=== PATIENT | female | born 2000 | race Caucasian/White ===

== ENCOUNTER 2018-08-19 21:34 | Inpatient (IN) ==
--- NOTE | 2018-08-19 22:10 | ED ---
HPI General Chief Complaint: Psychiatric Symptoms Stated Complaint: Pysch Eval/VSCO Time Seen by Provider: 08/19/18 21:41 Source: patient and police Mode of arrival: ambulatory Limitations: no limitations History of Present Illness HPI Narrative: 18-year-old white female presents emergency department under [place] act by PD. Please were summoned after the patient had gotten into an argument with her mother. She became physically aggressive and agitated. She states that she did not want to stay at her mother's house any longer. She wanted to leave and go make money. 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 She states that she has done this in the past to make money. He states that she cannot get a job because she does not have transportation but feels this is one way of making money. She denies making any suicidal statements. She states that she does not want to hurt herself or hurt anyone. If she had money she would like to go out and do some cocaine but she does not have any. She does drink on occasion. She does not smoke. Denies . Last mental cycle 2 weeks ago. She does report some increased urinary frequency and mild dysuria. She denies any fever or chills. No chest pain or shortness of breath. No nausea vomiting. No abdominal or pelvic pain. She reportedly has been taking her medications although she is not a very good historian. Past medical history: Bipolar, anxiety, history of prior prostitution Surgical history: Denies Social history: Does drink alcohol on occasion. Has done drugs in the past but not currently. Denies any tobacco. Related Data Home Medications Medication Instructions Recorded Confirmed hop-k [id number]-prim 08/19/18 [Vivaben] lithium carbonate 300 mg PO BID 08/19/18 08/19/18 lurasidone [Latuda] 60 mg PO DAILY 08/19/18 08/19/18 prazosin 1 mg PO BID 08/19/18 08/19/18 trazodone 50 mg PO DAILY 08/19/18 08/19/18 Allergies Allergy/AdvReac Type Severity Reaction Status Date / Time No Allergy Information Allergy Unverified 08/19/18 21:43 Available Review of Systems ROS: all other systems reviewed are negative [facility] Social History Social History Substance History: Past History Second Hand Smoke Exposure: No Smoking Status: Never smoker How Often Do You Have a Drink Containing Alcohol: 2 to 4 times a month Recent Travel in [facility] within the Last 8 Weeks: No Recent Out of Country Travel within the Last 8 Weeks: No Exam Narrative Exam Narrative: GENERAL: Well-nourished, well-developed patient. SKIN: Warm and dry. HEAD: Normocephalic and atraumatic. EYES: No scleral icterus. No injection or drainage. ENT: No nasal drainage noted. Mucous membranes pink. Airway patent. NECK: Supple, trachea midline. Moves head freely without obvious discomfort. CARDIOVASCULAR: Regular rate and rhythm without murmurs, gallops, or rubs. RESPIRATORY: Breath sounds equal bilaterally. No accessory muscle use. GASTROINTESTINAL: Abdomen soft, non-tender, nondistended. EXTREMITIES: No cyanosis or edema. BACK: Nontender without obvious deformity. No CVA tenderness. NEURO: Patient is alert and oriented. no sensorimotor deficits. Nonfocal. Normal speech. PSYCH: No delusions. No auditory or visual hallucinations. Poor insight and judgment. Course Initial Documented Vital Signs Temperature 97.5 F L 08/19/18 21:52 Pulse Rate 89 08/19/18 21:52 Respiratory Rate 20 08/19/18 21:52 Blood Pressure 133/87 08/19/18 21:52 Last Documented Vital Signs Temperature 97.5 F L 08/19/18 21:52 Pulse Rate 89 08/19/18 21:52 Respiratory Rate 20 08/19/18 21:52 Blood Pressure 133/87 08/19/18 21:52 Medical Decision Making MDM Narrative Medical decision making narrative: We will perform routine laboratory testing for medical clearance. Medical Screen Exam Complete: Yes Emergency Medical Condition: Yes Differential Diagnosis Differential Diagnosis: MDM: High Differential diagnoses: Schizophrenia, schizoaffective disorder, bipolar, anxiety, depression, adjustment reaction, mood disorder NOS, ODD, depressive disorder NOS, psychosis NOS, substance induced mood disorder, DMDD, Asperger syndrome, infection,electrolyte abnormality, malingering. Mental health screening discussed with the patient. Psychiatric screen ordered. Lab Data Result diagrams: 08/19/18 22:09 08/19/18 22:09 POC Results POC Urine Results Negative Lab Results 08/19/18 08/19/18 08/19/18 Range/Units 22:09 22:09 22:09 WBC 9.6 (4.0-11.0) th/mm3 RBC 5.10 (4.00-5.30) mil/mm3 Hgb 15.6 H (11.6-15.3) gm/dL Hct 46.3 H (35.0-46.0) % MCV 90.7 (80.0-100.0) fL MCH 30.6 (27.0-34.0) pg MCHC 33.7 (32.0-36.0) % RDW 12.3 (11.6-17.2) % Plt Count 247 (150-450) th/mm3 MPV 8.7 (7.0-11.0) fL Neut % (Auto) 75.7 H (16.0-70.0) % Lymph % (Auto) 18.4 (9.0-44.0) % Becker % (Auto) 4.4 (0.0-8.0) % Eos % (Auto) 0.9 (0.0-4.0) % Baso % (Auto) 0.6 (0.0-2.0) % Neut # (Auto) 7.2 (1.8-7.7) th/mm3 Lymph # (Auto) 1.8 (1.0-4.8) th/mm3 [place] # (Auto) 0.4 (0.0-0.9) th/mm3 Eos # (Auto) 0.1 (0.0-0.4) th/mm3 Baso # (Auto) 0.1 (0.0-0.2) th/mm3 WBC Differential . Differential Comment Auto diff final Sodium 142 (136-145) meq/L Potassium 4.1 (3.5-5.1) meq/L Chloride 112 H (98-107) meq/L Carbon Dioxide 24.4 (21.0-32.0) meq/L Anion Gap 6 (5-15) meq/L BUN 10 (7-18) mg/dL Creatinine 0.82 (0.50-1.00) mg/dL Estimated GFR 89 (>89) mL/min Random Glucose 124 H (74-106) mg/dL Calcium 8.9 (8.5-10.1) mg/dL Magnesium 2.3 (1.5-2.5) mg/dL Total Bilirubin 0.2 (0.2-1.0) mg/dL AST 16 (16-38) U/L ALT 18 (9-42) U/L Alkaline Phosphatase 51 (45-117) U/L Total Protein 7.4 (6.4-8.2) g/dL Albumin 4.2 (3.4-5.0) g/dL TSH 0.542 (0.358-3.740) uIU/mL Urine Color (Yellw/Straw) Urine Clarity (Clear) Urine pH (5.0-8.5) Ur Specific [place] (1.002-1.035) Urine Protein (Neg-Trace) mg/dL Urine Glucose (UA) (Negative) mg/dL Urine Ketones (Negative) mg/dL Urine Occult Blood (Negative) Urine Nitrate (Negative) Urine Bilirubin (Negative) Urine Urobilinogen (Less than 2) mg/dL Ur Leukocyte Esterase (Negative) Urine RBC (0-3) /hpf Urine WBC (0-5) /hpf Ur Squamous Epith Cells (0-5) /hpf Calcium Oxalate Crystal (None) /hpf Hyaline Casts (0-3) /lpf Granular Casts (None) /lpf Urine Mucus (Occasional) /lpf Micro UA Comment Ur Microscopic Review Urine Culture Comments Urine Opiates Screen (Neg) Ur Barbiturates Screen (Neg) Ur Amphetamines Screen (Neg) U Benzodiazepines Scrn (Neg) [place] 0.2 L (0.5-1.5) meq/L Urine Cocaine Screen (Neg) U Cannabinoids Screen (Neg) Serum Alcohol Less than 3 (0-5) mg/dL 08/19/18 08/19/18 Range/Units 23:49 23:49 WBC (4.0-11.0) th/mm3 RBC (4.00-5.30) mil/mm3 Hgb (11.6-15.3) gm/dL Hct (35.0-46.0) % MCV (80.0-100.0) fL MCH (27.0-34.0) pg MCHC (32.0-36.0) % RDW (11.6-17.2) % Plt Count (150-450) th/mm3 MPV (7.0-11.0) fL Neut % (Auto) (16.0-70.0) % Lymph % (Auto) (9.0-44.0) % Becker % (Auto) (0.0-8.0) % Eos % (Auto) (0.0-4.0) % Baso % (Auto) (0.0-2.0) % Neut # (Auto) (1.8-7.7) th/mm3 Lymph # (Auto) (1.0-4.8) th/mm3 Becker # (Auto) (0.0-0.9) th/mm3 Eos # (Auto) (0.0-0.4) th/mm3 Baso # (Auto) (0.0-0.2) th/mm3 WBC Differential Differential Comment Sodium (136-145) meq/L Potassium (3.5-5.1) meq/L Chloride (98-107) meq/L Carbon Dioxide (21.0-32.0) meq/L Anion Gap (5-15) meq/L BUN (7-18) mg/dL Creatinine (0.50-1.00) mg/dL Estimated GFR (>89) mL/min Random Glucose (74-106) mg/dL Calcium (8.5-10.1) mg/dL Magnesium (1.5-2.5) mg/dL Total Bilirubin (0.2-1.0) mg/dL AST (16-38) U/L ALT (9-42) U/L Alkaline Phosphatase (45-117) U/L Total Protein (6.4-8.2) g/dL Albumin (3.4-5.0) g/dL TSH (0.358-3.740) uIU/mL Urine Color Yellow (Yellw/Straw) Urine Clarity Hazy H (Clear) Urine pH 5.0 (5.0-8.5) Ur Specific [place] 1.029 (1.002-1.035) Urine Protein 30 H (Neg-Trace) mg/dL Urine Glucose (UA) Negative (Negative) mg/dL Urine Ketones Trace H (Negative) mg/dL Urine Occult Blood Negative (Negative) Urine Nitrate Negative (Negative) Urine Bilirubin Negative (Negative) Urine Urobilinogen 2.0 H (Less than 2) mg/dL Ur Leukocyte Esterase Trace H (Negative) Urine RBC 3 (0-3) /hpf Urine WBC 4 (0-5) /hpf Ur Squamous Epith Cells 3 (0-5) /hpf Calcium Oxalate Crystal Rare H (None) /hpf Hyaline Casts 4 (0-3) /lpf Granular Casts 11 (None) /lpf Urine Mucus Many H (Occasional) /lpf Micro UA Comment Culture not ind Ur Microscopic Review Not Reportable Urine Culture Comments Culture not ind Urine Opiates Screen Neg (Neg) Ur Barbiturates Screen Neg (Neg) Ur Amphetamines Screen Neg (Neg) U Benzodiazepines Scrn Neg (Neg) [place] (0.5-1.5) meq/L Urine Cocaine Screen Neg (Neg) U Cannabinoids Screen Neg (Neg) Serum Alcohol (0-5) mg/dL Discharge Plan Discharge Disposition Patient Disposition: 30 Still Patient Discharge Condition Condition: Stable Physicians Team ED Provider: Albert Torres ED Midlevel Provider: Bravo Lorenzo Primary Care Provider: UNKNOWN, Rxs /Orders / Referrals /Forms Prescriptions: No Action prazosin 1 mg Capsule 1 mg PO BID RF: 0 lithium carbonate 300 mg Tablet Extended Release 300 mg PO BID RF: 0 lurasidone [Latuda] 60 mg Tablet 60 mg PO DAILY RF: 0 hop-k [id number]-[id number]-prim [Vivaben] 85 mg-75 mg-75 [id number] Capsule RF: 0 trazodone 50 mg Tablet 50 mg PO DAILY RF: 0 Status ED Status: Medically Cleared
[2018-08-19 22:25] LABS: Baso # (Auto) 0.1 th/mm3 (0.0-0.2); Baso % (Auto) 0.6 % (0.0-2.0); Eos # (Auto) 0.1 th/mm3 (0.0-0.4); Eos % (Auto) 0.9 % (0.0-4.0); Hematocrit 46.3 % (35.0-46.0); Hemoglobin 15.6 gm/dL (11.6-15.3); Lymph # (Auto) 1.8 th/mm3 (1.0-4.8); Lymph % (Auto) 18.4 % (9.0-44.0); Mean Corpuscular HGB Conc 33.7 % (32.0-36.0); Mean Corpuscular Hemoglobin 30.6 pg (27.0-34.0); Mean Corpuscular Volume 90.7 fL (80.0-100.0); Mean Platelet Volume 8.7 fL (7.0-11.0); Mono # (Auto) 0.4 th/mm3 (0.0-0.9); Mono % (Auto) 4.4 % (0.0-8.0); Neut # (Auto) 7.2 th/mm3 (1.8-7.7); Neut % (Auto) 75.7 % (16.0-70.0); Platelet Count 247 th/mm3 (150-450); Red Cell Distribution Width 12.3 % (11.6-17.2); White Blood Count 9.6 th/mm3 (4.0-11.0)
[2018-08-19 22:48] LABS: Alanine Aminotransferase 18 U/L (9-42); Albumin 4.2 g/dL (3.4-5.0); Anion Gap 6 meq/L (5-15); Aspartate Aminotransferase 16 U/L (16-38); Blood Urea Nitrogen 10 mg/dL (7-18); Calcium 8.9 mg/dL (8.5-10.1); Carbon Dioxide 24.4 meq/L (21.0-32.0); Chloride 112 meq/L (98-107); Glomerular Filtration Rate 89 mL/min (>89); Glucose,Random 124 mg/dL (74-106); Magnesium 2.3 mg/dL (1.5-2.5); Potassium 4.1 meq/L (3.5-5.1); Sodium 142 meq/L (136-145)
[2018-08-19 22:58] LABS: Alkaline Phosphatase 51 U/L (45-117); Thyroid Stimulating Hormone 0.542 uIU/mL (0.358-3.740); Total Protein 7.4 g/dL (6.4-8.2)
[2018-08-20 00:25] LABS: Bilirubin,Urine Negative (Negative); Calcium Oxalate Crystals,Urine Rare /hpf; Clarity,Urine Hazy (Clear); Color,Urine Yellow (Yellw/Straw); Glucose,Urine (UA) Negative (Negative); Hyaline Casts,Urine 4 /lpf (0-3); Leukocyte Esterase,Urine Trace (Negative); Mucus,Urine Many /lpf (Occasional); Nitrite,Urine Negative (Negative); Specific Gravity,Urine 1.029 (1.002-1.035); Squamous Epithelial Cell,Urine 3 /hpf (0-5)
[2018-08-20 00:26] LABS: Amphetamine Screen,Urine Neg (Neg); Barbiturate Screen,Urine Neg (Neg); Cannabinoid Screen,Urine Neg (Neg); Cocaine Screen,Urine Neg (Neg)
[2018-08-20 00:37] LABS: Opiate Screen,Urine Neg (Neg)
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
[2018-08-20] MEDS ORDERED: Aluminum/Magnesium/Simethacone Susp 30 ML UDC PO PRN (10:38)
[2018-08-21 09:46] LABS: Calcium 8.9 mg/dL (8.5-10.1); Potassium 3.7 meq/L (3.5-5.1)
[2018-08-21 09:51] LABS: Chol/HDL Ratio 2.97 Ratio; HDL Cholesterol 48.8 mg/dL (40.0-60.0)
[2018-08-21 12:52] LABS: Hemoglobin A1c 5.1 % (4.3-6.0)
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
[2018-08-21] MEDS ORDERED: Prazosin HCl 1 MG Capsule PO SCH (21:00)
[2018-08-21] MEDS: Prazosin HCl 1 MG Capsule PO SCH (21:39)
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
[2018-08-22] MEDS: LORazepam 1 MG Tablet PO PRN (13:31)
[2018-08-22] MEDS: Docusate Sodium 100 MG Capsule PO SCH ×2 (13:31→21:20)
--- NOTE | 2018-08-22 19:32 | P.PNPSY ---
Subjective Remarks: Patient seen for follow-up, chart reviewed. Discussion with nursing staff reported that patient had difficulty with sleep last evening. Patient was found in the room noted to be calm and cooperative. Patient noted with concrete responses. Patient stated that she is feeling "okay" stating she is feeling somewhat tired reporting having spent with frequent awakenings at night. Patient reports she continues to have racing thoughts as well as losing having some generalized tremor. When explored patient states she has had this previously prior to starting medications but noted more prominent since resuming treatment. Patient denies any perceptual disturbances denies any suicidal or homicidal ideation. Patient continues very concrete thought process and poor understanding of recent decision making and its consequences. She reports having some constipation. Review of Systems All other systems reviewed negative except as stated in HPI Mental Status Examination Appearance: Appropriate Consciousness: Alert Orientation: x4 Motor Activity: Normal gait Speech: Hesitant Language: Adequate Fund of Knowledge: Inadequate Attention and Concentration: Other (Fair) Memory: Unremarkable Mood: Appropriate Affect: Appropriate Thought Process & Associations: Other ([place]) Thought Content: Racing thoughts Hallucination Type: None Delusion Type: None Suicidal Ideation: No Suicidal Plan: No Suicidal Intention: No Homicidal Ideation: No Homicidal Plan: No Homicidal Intention: No Insight: Poor Judgment: Impulsive Assessment and Plan - Assessment (1) Bipolar disorder Code(s): F31.9 - Bipolar disorder, unspecified Status: Acute (2) Developmental delay, borderline Code(s): R62.50 - Unspecified lack of expected normal physiological development in childhood Status: Acute - Plan Plan: Patient decided continue with racing thoughts, noted to have concrete thought process likely secondary to the degree of intellectual disability, limited insight and poor judgment continues. We will continue current treatment. We will continue to monitor mood and behavior. Patient with tremor possibly secondary to adverse drug reaction from lithium we will continue to monitor. Patient recent lab work was found to be full within normal limits. We will continue to monitor mood and behavior. Discharge planning in progress. EKG ordered Justification for Continued Inpatient Stay: At risk of further decompensation at lower level care.
[2018-08-22] MEDS: Prazosin HCl 1 MG Capsule PO SCH (21:19)
[2018-08-23 05:34] VITALS: RESP 16
[2018-08-23] MEDS: Docusate Sodium 100 MG Capsule PO SCH ×2 (09:08→21:13)
[2018-08-23] MEDS: LORazepam 1 MG Tablet PO PRN (09:08)
--- NOTE | 2018-08-23 12:41 | ECG ---
Date Performed: 08/22/2018 Time Performed: 13:32:38 PTAGE: 18 years EKG: Sinus rhythm WITH SINUS ARRHYTHMIA WITH SHORT WY INTERVAL BORDERLINE ECG NO PREVIOUS TRACING DOCTOR: Jose Alfredo Mccarthy Interpretating Date/Time 08/23/2018 12:40:11
--- NOTE | 2018-08-23 14:43 | P.PNPSY ---
Subjective Remarks: Patient seen for follow up; chart reviewed. 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 Patient was found participating in groups and activities noted B, cooperative. Patient state her mood has been "okay" continues to endorse racing thoughts but states that now it is mostly at night and not so much during the day. Patient reports having visited by her mother which she stated that I go well but did mention to her that she no longer wanted to positive but was interested in engaging in employee. She reports being anxious at times being here in the hospital but looking forward for discharge. Patient states she is unclear whether she will be able to return back home although was not told that she would not be able to. Patient continues to report mild tremor with no other adverse drug reactions noted. Review of Systems All other systems reviewed negative except as stated in HPI Mental Status Examination Appearance: Appropriate Consciousness: Alert Orientation: x4 Motor Activity: Normal gait Speech: Hesitant Language: Adequate Fund of Knowledge: Inadequate Attention and Concentration: Other (Fair) Memory: Unremarkable Mood: Appropriate Affect: Appropriate Thought Process & Associations: Other ([place]) Thought Content: Racing thoughts Hallucination Type: None Delusion Type: None Suicidal Ideation: No Suicidal Plan: No Suicidal Intention: No Homicidal Ideation: No Homicidal Plan: No Homicidal Intention: No Insight: Poor Judgment: Impulsive Assessment and Plan - Assessment (1) Bipolar disorder Code(s): F31.9 - Bipolar disorder, unspecified Status: Acute (2) Developmental delay, borderline Code(s): R62.50 - Unspecified lack of expected normal physiological development in childhood Status: Acute - Plan Plan: Patient this time continues with racing thoughts and disturbed sleep. We will increase diphenhydramine to 100 mg p.o. at bedtime for sleep disturbance. We will continue current treatment. We will order lithium level at the appropriate interval. We will continue rest of medications. Continue to monitor mood and behavior. Discharge planning in progress. Justification for Continued Inpatient Stay: At risk of further decompensation at lower level care.
[2018-08-23] MEDS: Prazosin HCl 1 MG Capsule PO SCH (21:13)
--- NOTE | 2018-08-24 08:14 | P.TTN ---
- Patient Problems Problems: 1. Discharge planning 2. Medication compliance 3. Knowledge deficit 4. Lack of coping skills - Progress Toward Goals Provider Present: Dr. Cassandra Jurado Provider Input: 18 year-old bipolar disorder and learning disability. Was living with her mother, wants to live with a boyfriend. Non-compliant with medications. Parents want her in [facility]. Nurse(s) Present: [place] Nurse Input: 08/24: Pt went to court today; she was told that she is staying another week and is open to treatment; was told to watch her with males due to vulnerability Psychiatric Counselors Present: Baldemar Ramos Jr., [facility], Ludivina Alexandra, [facility], Other Psychiatric Therapist Input: Patient has poor insight. Will work with her on importance of medication compliance and a safe living environment. Group Spec/RT/OT/PULLIAM Present: HERACLIO Ruiz Group Spec/RT/OT/PULLIAM Input: 08/23: Pt attends most groups appropriately; she is social with peers - Discharge Plan Other 08/23: Pending discharge. Parents want pt to go to [facility] - Documentation Teaching Recipient: Patient
[2018-08-24] MEDS: Docusate Sodium 100 MG Capsule PO SCH ×2 (08:59→21:54)
--- NOTE | 2018-08-24 13:52 | P.PNPSY ---
Subjective Remarks: Patient seen for follow-up, chart reviewed. Discussion with nursing staff reported that patient compliant with medications was reported having some anxiety but improved with Ativan. Patient presented to mental health court and was retained by mental health court convertible top installer for a continuance for further stabilization. Patient states that she continued with slight tremor and slept better last evening. Patient reports her mood is improving and states that she now feels more worried and no longer angry. Patient reports that her recent thoughts are "not as much". Patient denying any perceptional services or delusions. Dental Technician Metal spoke with patient's mother who was requesting patient to be transferred to a residential treatment facility such as [facility], which will be explored as per the patient's mother was reminded that patient would go to this facility voluntarily and is not mandated or involuntary. Patient recent lithium level was 0.5. Patient has been complaining of pain on urination., HIV testing was negative. Review of Systems All other systems reviewed negative except as stated in HPI Mental Status Examination Appearance: Appropriate Consciousness: Alert Orientation: x4 Motor Activity: Normal gait Speech: Hesitant Language: Adequate Fund of Knowledge: Inadequate Attention and Concentration: Other (Fair) Memory: Unremarkable Mood: Appropriate Affect: Appropriate Thought Process & Associations: Linear Thought Content: Racing thoughts (Lessening) Hallucination Type: None Delusion Type: None Suicidal Ideation: No Suicidal Plan: No Suicidal Intention: No Homicidal Ideation: No Homicidal Plan: No Homicidal Intention: No Insight: Poor Judgment: Impulsive Assessment and Plan - Assessment (1) Bipolar disorder Code(s): F31.9 - Bipolar disorder, unspecified Status: Acute (2) Developmental delay, borderline Code(s): R62.50 - Unspecified lack of expected normal physiological development in childhood Status: Acute - Plan Plan: Patient this time noted with improvement in mood, decrease irritability, decreasing racing thoughts, lessening of hypersexual he admits that all preoccupation. Patient noted with lithium levels within therapeutic range although at the lower end of therapeutic level. We will plan for likely discharge tomorrow and will explore whether patient can be discharged to [facility] if accepted. Continue current treatment. Continue to monitor mood and behavior. Discharge planning in progress. Justification for Continued Inpatient Stay: At risk of further decompensation at lower level care.
[2018-08-24] MEDS: Prazosin HCl 1 MG Capsule PO SCH (20:55)
[2018-08-25] MEDS: Docusate Sodium 100 MG Capsule PO SCH (09:46)
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
[2018-08-25 17:12] VITALS: BP 129/71; PULSE 97; TEMP 97.5; O2SAT 100
== END 2018-08-25 18:40 | disposition home or self-care (01) ==
LOC: NEPJ 21:34 → NEDA 08-20 10:38 → H260 08-20 11:59
PROVIDERS: ADMIT Student in an Organized Health Care Education/Training Program; ATTEND Student in an Organized Health Care Education/Training Program